=== PATIENT | male | born 1995 | race Caucasian/White ===

== ENCOUNTER 2021-08-06 11:52 | Emergency (ER) | payer MEDICAID, SELFPAY ==
--- NOTE | 2021-08-06 12:33 | ED.URI ---
HPI - URI/Sore Throat General Chief Complaint: Upper Respiratory Symptoms Stated Complaint: cough/fever/bodypain Time Seen by Provider: 08/06/21 12:32 Source: patient Mode of arrival: ambulatory Limitations: no limitations History of Present Illness HPI Narrative: 26-year-old male no known medical history presents to the emergency department with complaints of malaise,congestion, fatigue, body aches, sore throat, fevers/chills better subjective x3 days. Patient is not vaccinated against COVID-19. He tells me that his brother is sick with similar symptoms. Patient has a current daily smoker he smokes a pack per day. MD elicited complaint: fever, sore throat and nasal congestion Onset (ago): day(s) (3) Consistency: constant Severity: moderate Able to tolerate fluids by mouth: No Exacerbating factors: nothing Relieving factors: nothing Context: sick contacts (Brother) Associated symptoms: fever (Subjective), chills, nasal congestion and sore throat Treatments prior to arrival: none Related Data Allergies Allergy/AdvReac Type Severity Reaction Status Date / Time No Known Allergies Allergy Verified 08/06/21 13:01 Review of Systems Review of Systems: Constitutional : positive Fever, positive Chills, positive fatigue, positive Malaise ENT/Mouth : positive sore throat, positive runny nose Eyes: No Discharge Cardiovascular : No Chest Pain, No SOB Respiratory : No Cough, No Sputum Gastrointestinal : No Nausea, No Vomiting, No Diarrhea Genitourinary : No Dysuria, No Urinary Frequency Musculoskeletal : positive Myalgia Skin : No rash Neuro : No Headache Yes all other systems are reviewed and are negative PMFSH Past Medical History Attestation statement: The following information was validated with the patient. Source: old records reviewed and nursing notes reviewed Physical Exam Vital Signs: Vital Signs: Last Vital Signs Temp 98.3 F 08/06/21 13:02 Pulse 83 08/06/21 13:02 Resp 16 08/06/21 13:02 BP 134/99 H 08/06/21 13:02 Pulse Ox 99 08/06/21 13:02 BMI result Body Mass Index 36.6 Vital signs stable. Appearance: Alert.? Oriented X3.? No acute distress.? Head: Normocephalic, atraumatic, no step-offs or deformities Eyes: Pupils equal, round and reactive to light.? ENT: Pharynx normal.? Neck: Normal inspection.? Neck supple.? CVS: Normal heart rate and rhythm.? Pulses normal.? Respiratory: No respiratory distress.? Breath sounds normal.? Abdomen: Soft and nontender.? Skin: Skin warm and dry.? Normal skin color.? Normal skin turgor.? Extremities: No lower extremity edema.? No calf ttp. 5/5 strength to bilateral upper and lower extremities Back: No midline tenderness, no C-spine tenderness, full range of motion, no CVA tenderness bilaterally Neuro: Oriented X 3.? No motor deficit.? No sensory deficit. Course Reevaluation(s) Reevaluation #1: Patient is COVID negative. However, patient has multiple family members that are COVID positive, I have advised him to retest in 2-4 days. I feel comfortable with discharge home likely upper respiratory viral infection. I have given him strict return precautions. Time: 13:03 MDM - URI/Sore Throat MDM Narrative Medical decision making narrative: 1236 26-year-old male no known medical history presents to the emergency department with COVID like symptoms since 3 days. He is not vaccinated. He is a current daily smoker. He denies chest pain, shortness of breath. Physical examination benign. Patient's vital signs are stable. Plan at this time is to obtain a COVID swab. Medical Records Attestation: I reviewed the patient's medical records. Lab Data Attestation: I reviewed the patient's lab results. Labs: Lab Results 08/06/21 Range/Units 12:11 COVID-19 (SERGIO) Negative (Negative) COVID-19 Clin Com See Note Critical Care Time Critical Care Time Critical Care Time: No Discharge Plan Discharge Clinical Impression: Upper respiratory infection Patient Disposition: Home, Self-Care Instructions: Upper Respiratory Infection (ED) Additional Instructions: Take your medications as prescribed. If you were prescribed antibiotics today, it is important that you take your medication to their entirety, do not skip any doses, do not finish them early. Follow-up with your primary care provider this week. Return to the emergency department with new or worsening symptoms. In case of emergency call 911 Although COVID test is negative I highly advised you get retested in 2-4 days as family members are also sick with COVID-19. I advised you to quarantine for 7 days. Please wear mask and practice social distancing. Referrals: Physician,None [Primary Care Provider] - 2 days Stand Alone Forms: Work/School Release
[2021-08-06 12:58] LABS: COVID-19 Test Negative (Negative)
[2021-08-06 13:02] VITALS: BP 134/99; PULSE 83; RESP 16; TEMP 36.8; O2SAT 99; BMI 36.6
== END 2021-08-06 13:23 | disposition home or self-care (01) ==
LOC: HO.ED 13:13
PROVIDERS: Emergency Provider Emergency Medicine
DX: J06.9 Acute upper respiratory infection, unspecified (principal); F17.200 Nicotine dependence, unspecified, uncomplicated; Z20.822 Contact with and (suspected) exposure to COVID-19
CPT/HCPCS: 36415; 87635; 99282; 99283

== ENCOUNTER 2021-09-28 23:20 | Emergency (ER) | payer MEDICAID, SELFPAY ==
[2021-09-29 00:03] VITALS: BP 100/78; PULSE 85; RESP 18; TEMP 37.3; O2SAT 97; BMI 37.3
[2021-09-29 00:28] LABS: COVID-19 Test Negative (Negative)
[2021-09-29 02:30] VITALS: BP 96/65; PULSE 84; RESP 18; TEMP 36.9; O2SAT 98
[2021-09-29] MEDS: Ondansetron ODT 4 MG TAB.RAPDIS TRANSLINGU (03:18)
--- NOTE | 2021-09-29 03:32 | ED_ITS ---
HPI - Nausea/Vomiting/Diarrhea General Chief complaint: Nausea/Vomiting/Diarrhea Stated complaint: Vomiting, nausea Time Seen by Provider: 09/29/21 02:56 Source: patient Mode of arrival: ambulatory History of Present Illness HPI Narrative: 26-year-old male without significant past medical history presents with nausea, vomiting, diarrhea that started approximately 09:00. Patient states roommate also has similar symptoms. Patient denies any abdominal pain until after the nausea and vomiting. He also denies any shortness of breath or urinary symptoms. Related Data Previous Rx's Medication Instructions Recorded ondansetron 4 mg disintegrating 4 mg PO Q6H PRN #7 tab 09/29/21 tablet Allergies Allergy/AdvReac Type Severity Reaction Status Date / Time No Known Allergies Allergy Verified 08/06/21 13:01 Review of Systems Review of Systems: Pertinent positives and negatives as stated in HPI 10 point review of systems is otherwise negative. PMFSH Past Medical History Source: nursing notes reviewed Social History Social History Advance Directives: No Advance Directives Information Provided: No Physical Exam Vital Signs: Vital Signs: Last Vital Signs Temp 98.4 F 09/29/21 02:30 Pulse 84 09/29/21 02:30 Resp 18 09/29/21 02:30 BP 96/65 09/29/21 02:30 Pulse Ox 98 09/29/21 02:30 BMI result Body Mass Index 37.3 VITAL SIGNS: Reviewed. GENERAL: Well developed, well nourished, in no acute distress. HEAD: Normocephalic/atraumatic, EYES: PERRLA, EOMI EARS: Ext canals without abnormality, TMs non-bulging and non-erythematous NOSE: Nares patent bilateral OROPHARYNX: no oral lesions noted, posterior pharynx clear LUNGS: Normal breath sounds. No adventitious sounds or accessory muscle use. SpO2<98> CARDIOVASCULAR: Regular rate and rhythm without noted murmurs ABDOMEN: Soft, non-tender, non-distended with bowel sounds, no CVA tenderness NEUROLOGIC: Alert and oriented x 4. Course Course Course Narrative: 26-year-old male with history and clinical presentation consistent with gastroenteritis given positive sick contact and on re-evaluation after Zofran has had complete resolution of his symptoms other than some burning within his stomach likely associated with the multiple episodes of nausea and vomiting. He was given a GI cocktail and was noted to tolerate oral intake. MDM - Nausea/Vomiting/Diarrhea Lab Data Labs: Lab Results 09/29/21 Range/Units 00:06 COVID-19 (SERGIO) Negative (Negative) COVID-19 Clin Com See Note Discharge Plan Discharge Clinical Impression: Gastroenteritis Patient Disposition: Home, Self-Care Instructions: Gastroenteritis (ED), Nutrition Tips for Relief of Diarrhea (ED) Additional Instructions: 1. Aumentar la hidrataci?n fluida, especialmente con agua. Le s[place] proporcionado medicamentos para controlar las n?useas. 2. Seguimiento con calderon proveedor de atenci?n primaria. Regrese a la jj de emergencias si los s?ntomas empeoran. Prescriptions: New ondansetron 4 mg tablet,disintegrating 4 mg PO Q6H PRN (Reason: nausea and vomiting) Qty: 7 0RF Referrals: [facility] [Primary Care Provider] - 2 days Print Language: Mohawk
[2021-09-29] MEDS: Lidocaine HCl Viscous 2 % 15 ML SOLUTION 10 ML MUCOUS MEM (03:58)
[2021-09-29] MEDS: Magnesium Hydrox/Alum Hydrox 30 ML ORAL.SUSP PO (03:58)
== END 2021-09-29 04:04 | disposition home or self-care (01) ==
PROVIDERS: Emergency Provider Student in an Organized Health Care Education/Training Program
DX: K52.9 Noninfective gastroenteritis and colitis, unspecified (principal); R10.9 Unspecified abdominal pain; Z20.822 Contact with and (suspected) exposure to COVID-19
CPT/HCPCS: 87635; 99283; 99284

== ENCOUNTER 2022-01-13 03:27 | Emergency (ER) | payer MEDICAID, SELFPAY ==
[2022-01-13 03:47] VITALS: BP 131/78; PULSE 90; RESP 16; TEMP 36.7; O2SAT 93; BMI 37.1
[2022-01-13 04:04] LABS: COVID-19 Test Positive (Negative); IDNOW Serial# 16C4AD1C
[2022-01-13 04:08] LABS: Influenza A Negative (Negative); Influenza B2 Negative (Negative)
[2022-01-13 04:49] VITALS: BP 132/90; PULSE 85; RESP 16; TEMP 36.4; O2SAT 99
--- NOTE | 2022-01-13 04:54 | PC.NURSE ---
pt reports N/V/D since yesterday, pt reports subjective fevers. to note pt vaccinated and boosted for COVID. pt denies sick contacts.
--- NOTE | 2022-01-13 05:37 | PC.NURSE ---
per MD PO challenge with juice, pt able to tolerate fluids PO without emesis.
--- NOTE | 2022-01-13 05:46 | ED_ITS ---
HPI - General Adult General Chief complaint: General Medical Stated complaint: n/v/d Time Seen by Provider: 01/13/22 05:46 Source: patient Mode of arrival: ambulatory History of Present Illness HPI narrative: 26-year-old male who presents with nausea, vomiting, diarrhea since yesterday as well as chills but denies any fevers or abdominal pain or urinary symptoms. Related Data Previous Rx's Medication Instructions Recorded ondansetron 4 mg disintegrating 4 mg PO Q6H PRN nausea and 09/29/21 tablet vomiting #7 tabs Allergies Allergy/AdvReac Type Severity Reaction Status Date / Time No Known Allergies Allergy Verified 08/06/21 13:01 Review of Systems Review of Systems: Pertinent positives and negatives as stated in HPI 10 point review of systems is otherwise negative. [facility] Past Medical History Source: nursing notes reviewed Social History Social History Advance Directives: No Physical Exam ED Vital Signs: Vital Signs - 24 hr 01/13/22 03:47 01/13/22 04:49 Temperature 98.1 F 97.6 F Pulse Rate 90 85 Respiratory Rate 16 16 Blood Pressure 131/78 132/90 H Pulse Oximetry 93 99 Oxygen Delivery Method Room Air Room Air BMI result Body Mass Index 37.1 VITAL SIGNS: Reviewed. GENERAL: Well developed, well nourished, in no acute distress. HEAD: Normocephalic/ataumatic EYES: PERRLA, EOMI EARS: Ext canals without abnormality, TMs non-bulging and non-erythematous NOSE: Nares patent bilateral OROPHARYNX: no oral lesions noted, posterior pharynx clear and non-erythematous without noted tonsillar enlargement/erythema/exudates NECK: Supple, no adenopathy LUNGS: Normal breath sounds. No adventitious sounds or accessory muscle use. SpO2<99> CARDIOVASCULAR: Regular rate and rhythm without noted murmurs ABDOMEN: Soft, non-tender, non-distended with bowel sounds. NEUROLOGIC: Alert and oriented x 4. Course Course Course Narrative: 26-year-old male with history and clinical presentation consistent with viral syndrome on review of all investigations is noted be COVID-19 positive. He was provided with combination analgesics and antiemetic here in the emergency room and is tolerating oral intake before being discharged home in stable condition. Medical Decision Making Lab Data Labs: Lab Results 01/13/22 01/13/22 Range/Units 03:46 03:46 COVID-19 (SERGIO) Positive A (Negative) COVID-19 Clin Com See Note Influenza Type A (LESLIE) Negative (Negative) Influenza Type B (LESLIE) Negative (Negative) Influenza A & B Note See Note Discharge Plan Discharge Clinical Impression: Viral syndrome, Lab test positive for detection of COVID-19 virus Patient Disposition: Home, Self-Care Instructions: Viral Syndrome (ED), COVID-19 (Coronavirus Disease 2019) (ED) Additional Instructions: 1. Recommend [id number] Tylenol/ibuprofen as needed for pain control, body aches, temperatures greater than 100.4. 2. Increase water intake. 3. You have been diagnosed with COVID-19 and must isolate for the next 5 days. Then you must follow all [place] and Federal guidelines. Return to the ER for worsening symptoms. Prescriptions: No Action ondansetron 4 mg tablet,disintegrating 4 mg PO Q6H PRN (Reason: nausea and vomiting) Qty: 7 0RF [facility] -
[2022-01-13] MEDS: Acetaminophen 325 MG TABLET 975 MG PO (05:54)
[2022-01-13] MEDS: Ibuprofen 400 MG TABLET PO (05:54)
[2022-01-13] MEDS: Ondansetron ODT 4 MG TAB.RAPDIS TRANSLINGU (05:54)
[2022-01-13] MEDS: dexAMETHasone sod phosphate 10 MG/ML VIAL IVPUSH (06:02)
[2022-01-13 06:10] VITALS: BP 136/87; PULSE 82; RESP 18; O2SAT 100
[2022-01-13 06:18] LABS: Strep A Nucleic Acid Negative (Negative)
== END 2022-01-13 06:27 | disposition home or self-care (01) ==
PROVIDERS: Emergency Provider Student in an Organized Health Care Education/Training Program
DX: U07.1 COVID-19 (principal); R11.2 Nausea with vomiting, unspecified
CPT/HCPCS: 36415; 87502; 87635; 87651; 96374; 99284; J1100

== ENCOUNTER 2022-04-14 09:02 | Emergency (ER) | payer MEDICAID, SELFPAY ==
[2022-04-14 09:06] VITALS: BP 155/99; PULSE 107; RESP 18; TEMP 37.1; O2SAT 95; BMI 33.6
[2022-04-14 10:27] LABS: COVID-19 Test Negative (Negative)
[2022-04-14 11:11] LABS: IDNOW Serial# 08D9AD1C; Strep A Nucleic Acid Positive (Negative)
--- NOTE | 2022-04-14 11:22 | ED.GENADULT ---
HPI - General Adult General Chief complaint: General Medical Stated complaint: headache diaherra body aches Time Seen by Provider: 04/14/22 09:09 Related Data Previous Rx's Medication Instructions Recorded ondansetron 4 mg disintegrating 4 mg PO Q6H PRN nausea and 09/29/21 tablet vomiting #7 tabs amoxicillin 875 mg-potassium 1 tab PO BID 10 days #20 tabs 04/14/22 clavulanate 125 mg tablet cyclobenzaprine 10 mg tablet 10 mg PO Q8H #14 tabs 04/14/22 Allergies Allergy/AdvReac Type Severity Reaction Status Date / Time No Known Allergies Allergy Verified 08/06/21 13:01 PMFSH Social History Social History Advance Directives: No Advance Directives Information Provided: No Physical Exam ED Vital Signs: Vital Signs - 24 hr 04/14/22 09:06 Temperature 98.8 F Pulse Rate 107 H Respiratory Rate 18 Blood Pressure 155/99 H Pulse Oximetry 95 Oxygen Delivery Method Room Air BMI result Body Mass Index 33.6 Medical Decision Making Lab Data Labs: Lab Results 04/14/22 04/14/22 Range/Units 09:42 10:46 COVID-19 (SERGIO) Negative (Negative) COVID-19 Clin Com See Note S. pyogenes GrpA LESLIE Positive A (Negative) Discharge Plan Discharge Clinical Impression: Acute bacterial pharyngitis, Close exposure to COVID-19 virus Patient Disposition: Home, Self-Care Instructions: Pharyngitis (ED) Prescriptions: New amoxicillin-pot clavulanate 875-125 mg tablet 1 tab PO BID 10 Days Qty: 20 0RF cyclobenzaprine 10 mg tablet 10 mg PO Q8H Qty: 14 0RF No Action ondansetron 4 mg tablet,disintegrating 4 mg PO Q6H PRN (Reason: nausea and vomiting) Qty: 7 0RF Referrals: [place],[facility] [Primary Care Provider] - 2 days Stand Alone Forms: Work/School Release Print Language: German
--- NOTE | 2022-04-14 11:29 | ED.URI ---
HPI - URI/Sore Throat General Chief Complaint: General Medical Stated Complaint: headache diaherra body aches Time Seen by Provider: 04/14/22 09:09 Source: patient Mode of arrival: ambulatory Limitations: language barrier ( Colombian-speaking) History of Present Illness HPI Narrative: 26-year-old male who is Colombian-speaking presenting to the ER with his brother with similar symptoms they report they have a headache for 2 days, associated body aches, fatigue, malaise, chills and intermittent episodes of diarrhea and subjective fever. Patient reports he has a separate complaint that his brother of a sore throat his brother denies a sore throat. They report that the brother's girlfriend was was positive for COVID over the past few days. He denies any other symptoms complaints or concerns at this time. MD elicited complaint: fever and sore throat Onset (ago): day(s) (2) Consistency: constant and progressively worsening Severity: mild Able to tolerate fluids by mouth: Yes Exacerbating factors: swallowing Relieving factors: nothing Context: sick contacts Associated symptoms: fever, chills, myalgias, headache, sore throat and diarrhea Treatments prior to arrival: none Related Data Previous Rx's Medication Instructions Recorded ondansetron 4 mg disintegrating 4 mg PO Q6H PRN nausea and 09/29/21 tablet vomiting #7 tabs amoxicillin 875 mg-potassium 1 tab PO BID 10 days #20 tabs 04/14/22 clavulanate 125 mg tablet cyclobenzaprine 10 mg tablet 10 mg PO Q8H #14 tabs 04/14/22 Allergies Allergy/AdvReac Type Severity Reaction Status Date / Time No Known Allergies Allergy Verified 08/06/21 13:01 Review of Systems Review of Systems: Constitutional : + Subjective fevers/chills/fatigue/malaise, No Weight loss, No Night Sweats, ENT/Mouth : No Hearing loss, No Ear Pain, No Nasal Congestion, No Sinus Pain, No Hoarseness, + sore throat, No Rhinorrhea, No Swallowing Difficulty Eyes: No Eye Pain, No Swelling, No Redness, No Foreign Body, No Discharge, No Vision Changes Cardiovascular : No Chest Pain, No SOB, No Dyspnea on Exertion, No Orthopnea, No Edema, No Palpitations Respiratory : No Cough, No Sputum, No Wheezing, No Smoke Exposure, No Dyspnea Gastrointestinal : No Nausea, No Vomiting, + Diarrhea, No Constipation, No abdominal Pain, No Hematochezia, No Melena Genitourinary : no irregular bleeding, No Dysuria, No Urinary Frequency, No Hematuria, No Urinary Incontinence, No Urgency, No Flank Pain, No Urinary Flow Changes, No Hesitancy Musculoskeletal : No joint pain, + Myalgias, No Joint Swelling Skin : No Skin Lesions, No rash Neuro : No Weakness, No Numbness, No Paresthesias, No Loss of Consciousness, No Dizziness, No Headache Psych : No Anxiety/Panic, No Depression, No SI/HI/AH/VH, No Social Issues, Heme/Lymph: No Bruising, No Bleeding,No Lymphadenopathy Endocrine : No Polyuria, No Polydipsia, No Temperature Intolerance Yes all other systems are reviewed and are negative [facility] Past Medical History Attestation statement: The following information was validated with the patient. Source: old records reviewed, obtained from family and nursing notes reviewed Social History Social History Advance Directives: No Advance Directives Information Provided: No Physical Exam Vital Signs: Vital Signs: Last Vital Signs Temp 98.8 F 04/14/22 09:06 Pulse 107 H 04/14/22 09:06 Resp 18 04/14/22 09:06 BP 155/99 H 04/14/22 09:06 Pulse Ox 95 04/14/22 09:06 O2 Del Method 04/14/22 09:06 BMI result Body Mass Index 33.6 vital signs have been reviewed as normal and appeared to be correct. Blood pressure 159/99. Heart rate 107. Respiration rate normal. Temperature normal. Oxygen saturation normal. Appearance: Alert. Oriented X3. No acute distress. Head: Normal external exam. Normocephalic. Atraumatic. Eyes: PERRLA. EOMI. Conjunctiva and sclera normal. Eyelids normal. ENT: EAC normal. TM's Normal. posterior pharynx erythematous bilaterally with exudate scattered. Uvula is midline. The rest of the soft and hard palate within normal limits. Not consistent with peritonsillar/ pharyngeal /dental abscess. Moist mucous membranes. No lesions/ulcerations or masses noted on the tongue. Normal voice. No trismus noted. No drooling noted. No muffled voice noted. Neck: Normal inspection. Neck supple. FROM. No adenopathy. Thyroid Normal. No tracheal deviation noted. No crepitus is noted. No meningeal signs. No neck mass noted. No signs of trauma noted. CVS: Normal heart rate and rhythm. Heart sound normal. Pulses normal throughout. No murmurs/rales/gallops. Respiratory: No respiratory distress. Painless inspiration. Breath sounds normal. No wheezes/rales/rhonchi noted. Chest nontender. No crepitus is noted. No accessory muscle usage noted or decreased air movement noted. No signs of trauma. Abdomen: Soft and nontender. Nondistended. No guarding. No rigidity. Bowel sounds normal in all 4 quadrants. No distention noted. No organomegaly noted. No visible injury noted. No rebound tenderness. Negative Rovsing sign. Negative obturator's sign. Negative psoas sign. Negative Harris sign. Back: No CVA tenderness. Full range of motion noted. Nontender. Skin: Skin warm and dry. Normal skin color. Normal skin turgor. No rashes/lesions/lacerations noted. Extremities: No lower extremity edema. No calf tenderness is noted. Extremities exhibit normal range of motion and nontender. Neuro: Oriented X 3. No motor deficit. No sensory deficit. Reflexes normal. Normal steady gait. No focal neuro deficits noted. CN's II-XII intact bilaterally? Vascular: + radial pulses/+ 2 distal pedal pulses/+2 dorsalis pedis b/l. Normal cap refill. No cyanosis noted to upper extremity nails and lower extremity toes nails. Course Course Course Narrative: Patient negative for COVID. Positive for strep. Although I explained him that he should self isolate per CDC guidelines due to a close contact was positive for COVID. His brother is also negative COVID. Although they are always together and go to work together. Therefore will give work note. Will DC home antibiotics for bacterial pharyngitis and instructions return if any new or worsening symptoms follow up with primary care provider. Patient and brother at bedside understand agree this plan. MDM - URI/Sore Throat Medical Records Attestation: I reviewed the patient's medical records. Lab Data Attestation: I reviewed the patient's lab results. Labs: Lab Results 04/14/22 04/14/22 Range/Units 09:42 10:46 COVID-19 (SERGIO) Negative (Negative) COVID-19 Clin Com See Note S. pyogenes GrpA LESLIE Positive A (Negative) Discharge Plan Discharge Clinical Impression: Acute bacterial pharyngitis, Close exposure to COVID-19 virus Patient Disposition: Home, Self-Care Instructions: Pharyngitis (ED) Prescriptions: New amoxicillin-pot clavulanate 875-125 mg tablet 1 tab PO BID 10 Days Qty: 20 0RF cyclobenzaprine 10 mg tablet 10 mg PO Q8H Qty: 14 0RF No Action ondansetron 4 mg tablet,disintegrating 4 mg PO Q6H PRN (Reason: nausea and vomiting) Qty: 7 0RF Referrals: [place],[facility] [Primary Care Provider] - 2 days Stand Alone Forms: Work/School Release Print Language: Colombian
== END 2022-04-14 11:44 | disposition home or self-care (01) ==
PROVIDERS: Physician Assistant Medical; Emergency Provider Emergency Medicine Emergency Medical Services
DX: J02.8 Acute pharyngitis due to other specified organisms (principal); R51.9 Headache, unspecified; M79.10 Myalgia, unspecified site; R50.9 Fever, unspecified; Z20.822 Contact with and (suspected) exposure to COVID-19; Z79.899 Other long term (current) drug therapy
CPT/HCPCS: 36415; 87635; 87651; 99283